=== PATIENT | male | born 1990 | race Caucasian/White ===

== ENCOUNTER 2021-03-12 07:27 | Emergency (ER) | payer OTHER, SELFPAY ==
--- NOTE | 2021-03-12 07:57 | PC.NURSE ---
@3993 DR MARION REQUEST A CALL PLACED TO [facility] PT [place] LINE [phone] FOR PLASTIC SURGERY FOR THIS PT MOI ANSWERS, TAKES PT INFO, TAKES CALL BACK NUMBER, ASKS FOR RAPID COVID TEST TO BE DONE, THEN SAYS SHE WILL CALL BACK WITH PLASTIC SURGEON ON THE LINE FOR DR SANAM MARION MADE AWARE OF ALL OF ABOVE INFORMATION.
--- NOTE | 2021-03-12 08:00 | ED.GENADULT ---
HPI - General Adult General Chief complaint: General Medical Stated complaint: dog bite Time Seen by Provider: 03/12/21 07:52 Source: patient Mode of arrival: ambulatory Limitations: no limitations History of Present Illness HPI narrative: Patient comes emergency room complaining of a dog bite to the face. Patient states Related Data Allergies Allergy/AdvReac Type Severity Reaction Status Date / Time No Known Allergies Allergy Verified 03/12/21 07:58 PMFSH Social History Social History Advance Directives: No Advance Directives Information Provided: No
--- NOTE | 2021-03-12 08:10 | PC.NURSE ---
@9050 RETURN CALL FROM [facility] OF [facility] PT [place] LINE ASKING TO SPEAK WITH DR SANAM MARION GIVES DR CARLOS TORREZ OF PLASTIC SURGERY ACCEPTING
[2021-03-12] MEDS: Diphth,Pertus(ACell),Tet Adult 0.5 ML SYRINGE IM (08:13)
--- NOTE | 2021-03-12 08:14 | ED_ITS ---
HPI - Wound/Laceration General Chief Complaint: General Medical Stated Complaint: dog bite Time Seen by Provider: 03/12/21 07:52 Source: patient Mode of arrival: ambulatory Limitations: no limitations History of Present Illness HPI narrative: Patient comes to the emergency room complaining of a dog bite to the face. Patient states that he returned from work this morning. The patient states that his pit bull was sleeping, the patient leaned forward to give him a kiss, dog bit him in the face. Related Data Allergies Allergy/AdvReac Type Severity Reaction Status Date / Time No Known Allergies Allergy Verified 03/12/21 07:58 Review of Systems Review of Systems: Constitutional : No Weight loss, No Fever, No Chills, No Night Sweats, No Fatigue, No Malaise ENT/Mouth : No Hearing loss, No Ear Pain, No Nasal Congestion, No Sinus Pain, No Hoarseness, No sore throat, No Rhinorrhea, No Swallowing Difficulty Eyes: No Eye Pain, No Swelling, No Redness, No Foreign Body, No Discharge, No Vision Changes Cardiovascular : No Chest Pain, No SOB, No Dyspnea on Exertion, No Orthopnea, No Edema, No Palpitations Respiratory : No Cough, No Sputum, No Wheezing, No Smoke Exposure, No Dyspnea Gastrointestinal : No Nausea, No Vomiting, No Diarrhea, No Constipation, No a bdominal Pain, No Hematochezia, No Melena Genitourinary : no irregular bleeding, No Dysuria, No Urinary Frequency, No Hematuria, No Urinary Incontinence, No Urgency, No Flank Pain, No Urinary Flow Changes, No Hesitancy Musculoskeletal : No joint pain, No Myalgias, No Joint Swelling Skin : Dog bite to the left side of the face Neuro : No Weakness, No Numbness, No Paresthesias, No Loss of Consciousness, No Dizziness, No Headache Psych : No Anxiety/Panic, No Depression, No SI/HI/AH/VH, No Social Issues, Heme/Lymph: No Bruising, No Bleeding,No Lymphadenopathy Endocrine : No Polyuria, No Polydipsia, No Temperature Intolerance PMFSH Social History Social History Advance Directives: No Advance Directives Information Provided: No Physical Exam Vital Signs: Appearance: Alert. Oriented X3. No acute distress. Eyes: Pupils equal, round and reactive to light. ENT: Pharynx normal. Patient has a 1 cm laceration lateral to the lip, midline, wound is 1 cm deep into the buccal mucosa, bleeding controlled Neck: Normal inspection. Neck supple. No lymph nodes noted. No crepitus CVS: Normal heart rate and rhythm. Pulses normal. Normal S1 and S2 Respiratory: No respiratory distress. Breath sounds normal. No Wheezing. No rales Abdomen: Soft and nontender. No rigidity. No distention. good BS x4 Skin: Skin warm and dry. Normal skin color. Normal skin turgor. Extremities: No lower extremity edema. No Lacerations. No Rash Neuro: Oriented X 3. No motor deficit. No sensory deficit. Moving all extermities. No slurred speech. Course Course Course Narrative: I discussed the patient with Dr. Yi Cruz from Plastic surgery at [facility]. Patient will be transferred to the emergency room. I discussed with the patient that we can offer transfer by ambulance, patient declined, states that his father is driving and would like to go to [facility] by private vehicle. Patient received 1 dose of Tdap, patient received 875 mg of Augmentin p.o. rapid COVID test is pending. Patient does not have any COVID like symptoms Discharge Plan Discharge Clinical Impression: Open wound of face due to dog bite Patient Disposition: Xfer Other Transfer Details: Transfer by private vehicle to [facility] Emergency Room Additional Instructions: Please go immediately to the emergency room at [facility]. Please present your transfer papers from this hospital. Dr. Yi Cruz from Plastic surgery will be expecting you
[2021-03-12] MEDS: Amoxicillin/Potassium Clav 875 MG TABLET PO (08:16)
--- NOTE | 2021-03-12 08:16 | PC.NURSE ---
@4419 DR MARION ASK FOR CALL TO [facility] PT [place] LINE TO SEE IF SHE NEEDS TO SPEAK WITH ER MD WELL, GRAZYNA ANSWERS AND SAYS ONLY AN RN TO RN NEEDS TO BE CALLED TO THE ER @ [phone]
--- NOTE | 2021-03-12 08:19 | PC.NURSE ---
PLAN IS FOR PATIENT TO TRAVEL BY PRIVATE CAR TO [facility] FOR PLASTICS CONSULTATION AND TREATMENT. Seen by physician, medicated as ordered. Patient aware of plan, and agrees. At this point, bleeding is controlled.
[2021-03-12 08:21] LABS: COVID-19 Test Negative (Negative)
[2021-03-12] MEDS: Ibuprofen 600 MG TABLET PO (08:32)
--- NOTE | 2021-03-12 09:07 | PC.NURSE ---
@ THIS TIME CALL PLACED TO [facility] PT [place] LINE THAT PT HAS ARRIVED @ THE [facility] EMERGENCY ROOM WITHOUT PAPERWORK, BUT THAT IT WAS FAXED TO [phone]
== END 2021-03-12 08:40 | disposition other institution (70) ==
PROVIDERS: Emergency Provider Emergency Medicine; PCP Family Medicine
DX: S01.551A Open bite of lip, initial encounter (principal); W54.0XXA Bitten by dog, initial encounter; Y93.9 Activity, unspecified; Y92.9 Unspecified place or not applicable; Y99.9 Unspecified external cause status; Z20.822 Contact with and (suspected) exposure to COVID-19
CPT/HCPCS: 36415; 87635; 90471; 90715; 99283; 99284